=== PATIENT | male | born 1980 | race African-American/Black ===

== ENCOUNTER 2019-11-24 18:13 | Emergency (ER) | payer OTHER ==
[~2019-11-24] VITALS: Ht 167.6 cm; Wt 108.9 kg
[2019-11-24] MEDS ORDERED: Tetracaine 0.5% Opth 4ml Soln LEFT EYE ONE (18:15)
[2019-11-24] MEDS ORDERED: Fluorescein Strips LEFT EYE ONE (18:15)
[2019-11-24 18:33] VITALS: BP 115/70
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
[2019-11-24] MEDS ORDERED: OFLOXACIN10 ML OP (18:40)
[2019-11-24] MEDS ORDERED: IBUPROFEN600 M1 ORAL (18:40)
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
== END 2019-11-24 18:45 | disposition home or self-care (01) ==
LOC: EDBD 18:13 → EMR 18:40
DX: S05.01XA Injury of conjunctiva and corneal abrasion without foreign body, right eye, initial encounter (principal); X58.XXXA Exposure to other specified factors, initial encounter; Y92.9 Unspecified place or not applicable
CPT/HCPCS: 99283